=== PATIENT | female | born 1955 | race Caucasian/White ===

== ENCOUNTER 2023-06-20 10:22 | Outpatient (CLI) | payer OTHER, SELFPAY ==
--- NOTE | 2023-06-20 10:27 | MM_ITS ---
WS: [email or web address] SCREENING DIGITAL BREAST TOMOSYNTHESIS MAMMOGRAM WITH CAD HISTORY: Screening mammogram COMPARISON: 01/17/2012, 10/01/2015 and 05/21/2019 Bilateral CC and MLO with tomosynthesis and synthetic mammography submitted. Computer aided detection analyzed. Breast composition: The breasts are heterogeneously dense, which may obscure small masses. There is a n asymmetry in the posterior RIGHT breast seen below the nipple line measuring 10 mm. This is posteri or adjacent to the chest wall. Not definitely seen on the CC projection due to its posterior location . Possibly present on the study from 2011 but needs to be further evaluated. IMPRESSION: MM/[place] [id number] BI-RADS: 0-Incomplete: Need additional imaging evaluation FOLLOW UP: Need Additional Imaging RIGHT breast: Spot compression views (MLO). True ML. Ultrasound to follow if ab normality persists.
== END 2023-06-20 10:23 | disposition home or self-care (01) ==
PROVIDERS: PCP Family Medicine; Visit Provider Family Medicine
DX: Z12.31 Encounter for screening mammogram for malignant neoplasm of breast (principal)
CPT/HCPCS: 77063; 77067

== ENCOUNTER → 2023-07-11 08:31 | Outpatient (BNVA) | payer OTHER, SELFPAY | PROVIDERS: PCP Family Medicine; Visit Provider Family Medicine | DX: Z13.220 Encounter for screening for lipoid disorders (principal); Z51.81 Encounter for therapeutic drug level monitoring; E55.9 Vitamin D deficiency, unspecified | CPT/HCPCS: 80053; 80061; 82306; 85025 ==

== ENCOUNTER → 2023-07-18 13:14 | Outpatient (BNVA) | payer OTHER, SELFPAY | PROVIDERS: PCP Family Medicine; Visit Provider Family Medicine | DX: Z00.00 Encounter for general adult medical examination without abnormal findings (principal) | CPT/HCPCS: 87624 ==

== ENCOUNTER 2023-07-24 09:22 | Outpatient (CLI) | payer OTHER, MEDICARE, SELFPAY ==
--- NOTE | 2023-07-24 09:30 | MM_ITS ---
WS: [email or web address] ADDITIONAL VIEWS RIGHT MAMMOGRAM WITH DIGITAL BREAST TOMOSYNTHESIS. RIGHT BREAST ULTRASOUND HISTORY: Abnormal mammogram COMPARISON: 06/20/2023 and 05/21/2019 RIGHT MAMMOGRAM: Spot compression views and true ML with digital breast tomosynthesis and SM. Nodule is reidentified against the posterior RIGHT chest wall measuring 8.5 mm. This nodule does appe ar to be just below the nipple line and close to the midline. RIGHT BREAST ULTRASOUND 2-D and color Doppler imaging submitted. There is a hypoechoic mass. For posterior against the chest wall at 4:00, 1 cm from the nipple. This is isoechoic to the adjacent breast parenchyma and measures 8 x 9 x 3 mm. Size and location correspon d to the mammographic abnormality. This may be the same lesion seen on mammography. IMPRESSION: MM/[place] [id number] BI-RADS: 3-Probably Benign FOLLOW UP: 6 Month Follow-up Recommend diagnostic mammogram follow-up in 6 months and ultrasound of the RIG T breast. There is a benign-appearing breast mass against the chest wall. Very difficult to image due to its posterior location. Due to its appearance 6-month follow-up is recommended.
--- NOTE | 2023-07-24 10:54 | US_ITS ---
WS: [email or web address] ADDITIONAL VIEWS RIGHT MAMMOGRAM WITH DIGITAL BREAST TOMOSYNTHESIS. RIGHT BREAST ULTRASOUND HISTORY: Abnormal mammogram COMPARISON: 06/20/2023 and 05/21/2019 RIGHT MAMMOGRAM: Spot compression views and true ML with digital breast tomosynthesis and SM. Nodule is reidentified against the posterior RIGHT chest wall measuring 8.5 mm. This nodule does appe ar to be just below the nipple line and close to the midline. RIGHT BREAST ULTRASOUND 2-D and color Doppler imaging submitted. There is a hypoechoic mass. For posterior against the chest wall at 4:00, 1 cm from the nipple. This is isoechoic to the adjacent breast parenchyma and measures 8 x 9 x 3 mm. Size and location correspon d to the mammographic abnormality. This may be the same lesion seen on mammography. IMPRESSION: US/US breast RT limited* [id number] BI-RADS: 3-Probably Benign FOLLOW UP: 6 Month Follow-up Recommend diagnostic mammogram follow-up in 6 months and ultrasound of the RIGH T breast. There is a benign-appearing breast mass against the chest wall. Very difficult to image due to its posterior location. Due to its appearance 6-month follow-up is recommended.
== END 2023-07-24 09:23 | disposition home or self-care (01) ==
LOC: RAD 09:24
PROVIDERS: PCP Family Medicine; Visit Provider Family Medicine
DX: R92.8 Other abnormal and inconclusive findings on diagnostic imaging of breast (principal); Z12.31 Encounter for screening mammogram for malignant neoplasm of breast
CPT/HCPCS: 76642; 77061; G0279

== ENCOUNTER 2023-07-25 15:15 | Outpatient (CLI) | payer MEDICARE, OTHER, SELFPAY ==
--- NOTE | 2023-07-25 15:30 | XR_ITS ---
WS: [email or web address] DEXA (DUAL ENERGY X-RAY ABSORPTIOMETRY) Bone mineral density was performed using a [employer] machine. HISTORY: Postmenopausal COMPARISON: None available. Lumbar spine BMD (L1-L4): 0.992 g/cm2 T score: -1.6 Z score: -0.1 Total hip BMD: Left: 0.886 g/cm2. T score: -1.0 Z score: 0.2 Right: 0.927 g/cm2. T score: -0.6 Z score: 0.5 10 year probability of a major osteoporotic fracture is 8.8%. IMPRESSION: OSTEOPENIA based upon the WHO classification for females.
== END 2023-07-25 15:16 | disposition home or self-care (01) ==
LOC: RAD 15:15
PROVIDERS: PCP Family Medicine; Visit Provider Family Medicine
DX: Z78.0 Asymptomatic menopausal state (principal); M85.80 Other specified disorders of bone density and structure, unspecified site
CPT/HCPCS: 77080

== ENCOUNTER 2023-08-15 11:47 | Outpatient (CLI) | payer OTHER, MEDICARE, SELFPAY ==
--- NOTE | 2023-08-15 12:00 | USCV_ITS ---
Grecia Powell Age: 67 Gender: F : 1955 Exam Date: 08/15/2023 12:18 Ordering Phys: Rashel Jolley MD (Andy) ([email or web address]) Technologist: CT [place]am [place] [facility] [place]: HISTORY: PROCEDURES: FINDINGS: The deep veins are found to be patent bilaterally with no evidence of thrombosis The greater saphenous vein the saphenofemoral junction , greater saphenous vein distal to the saphenofemoral junction and the proximal greater saphenous vein segments were found to be patent bilaterally but of likely small caliber. The mid, distal and below-knee segments of the greater saphenous veins were noted visualized on the right side. The mid and distal greater saphenous vein segments are found to be patent and a small caliber on the left side. The below-knee segment of the greater saphenous vein was not visualized on the left side. Small saphenous vein was found to be patent bilaterally. Significant reflux of greater than 500 ms were noted in the proximal and mid segment of the small saphenous vein on the left side. The reflux time was greater than 3 ms 3 seconds and these venous segments were at a depth of more than 1 cm on the left side and where found to have diameters of 0.37 and 0.43 cm respectively. CONCLUSIONS 1. No evidence of DVT in the above-mentioned identifiable veins. 2. Significant venous reflux of greater than 500 ms were noted at the proximal and mid segments of the small saphenous vein on the left side. The venous diameter , reflux time and venous diameters are as mentioned above. 3. The mid, distal and below-knee segments of the greater saphenous vein on the right side was not visualized so also the below-knee segment of the greater saphenous vein on the left side. Dr Claudia Paulino MD [facility] (Electronically Signed) Final Date: 20 August 2023 18:43 S
== END 2023-08-15 11:48 | disposition home or self-care (01) ==
LOC: RAD 11:48
PROVIDERS: PCP Family Medicine; Visit Provider Thoracic Surgery (Cardiothoracic Vascular Surgery)
DX: I83.90 Asymptomatic varicose veins of unspecified lower extremity (principal); I87.2 Venous insufficiency (chronic) (peripheral)
CPT/HCPCS: 93970

== ENCOUNTER 2024-01-29 09:55 | Outpatient (CLI) | payer OTHER, SELFPAY ==
--- NOTE | 2024-01-29 | US_ITS ---
NOTE: Report was unsigned for reason: Order was edited. Original Signature date and time was: 01/29/24 @ 1215 ADDITIONAL VIEWS RIGHT MAMMOGRAM WITH DIGITAL BREAST TOMOSYNTHESIS. RIGHT BREAST ULTRASOUND HISTORY: Follow up on right breast lesion COMPARISON: 07/24/2023, 06/20/2023 and 05/21/2019 RIGHT MAMMOGRAM: Spot compression views and true ML with digital breast tomosynthesis and SM. Partially obscured mass measuring 11 x 8 mm persists in the posterior RIGHT breast just below the nipple. This mass is along the medial breast. No new mass. No suspicious calcifications. RIGHT BREAST ULTRASOUND 2-D and color Doppler imaging submitted. Ultrasound is directed to the inferior medial RIGHT breast At 4:00 reidentified is a ovoid hypoechoic mass measuring 0.7 x 1.0 x 0.4 cm which corresponds to the mammographic abnormality. This is also similar to the prior examination with no increase in size. This is probably a lymph node. MM/[place] [id number] IMPRESSION: BI-RADS: 3-Probably Benign FOLLOW UP: 6 Month Follow-up Patient to return in 6 months for bilateral, diagnostic mammogram. At that time ultrasound should also be performed also of the mass in the RIGHT breast. Favor this is a benign lymph node. BRENDA
--- NOTE | 2024-01-29 10:00 | MM_ITS ---
WS: [email or web address] ADDITIONAL VIEWS RIGHT MAMMOGRAM WITH DIGITAL BREAST TOMOSYNTHESIS. RIGHT BREAST ULTRASOUND HISTORY: Follow up on right breast lesion COMPARISON: 07/24/2023, 06/20/2023 and 05/21/2019 RIGHT MAMMOGRAM: Spot compression views and true ML with digital breast tomosynthesis and SM. Partially obscured mass measuring 11 x 8 mm persists in the posterior RIGHT breast just below the nip ple. This mass is along the medial breast. No new mass. No suspicious calcifications. RIGHT BREAST ULTRASOUND 2-D and color Doppler imaging submitted. Ultrasound is directed to the inferior medial RIGHT breast At 4:00 reidentified is a ovoid hypoechoic mass measuring 0.7 x 1.0 x 0.4 cm which corresponds to the mammographic abnormality. This is also similar to the prior examination with no increase in size. Th is is probably a lymph node.
--- NOTE | 2024-01-29 10:07 | MM_ITS ---
WS: [email or web address] ADDITIONAL VIEWS RIGHT MAMMOGRAM WITH DIGITAL BREAST TOMOSYNTHESIS. RIGHT BREAST ULTRASOUND HISTORY: Follow up on right breast lesion COMPARISON: 07/24/2023, 06/20/2023 and 05/21/2019 RIGHT MAMMOGRAM: Spot compression views and true ML with digital breast tomosynthesis and SM. Partially obscured mass measuring 11 x 8 mm persists in the posterior RIGHT breast just below the nip ple. This mass is along the medial breast. No new mass. No suspicious calcifications. RIGHT BREAST ULTRASOUND 2-D and color Doppler imaging submitted. Ultrasound is directed to the inferior medial RIGHT breast At 4:00 reidentified is a ovoid hypoechoic mass measuring 0.7 x 1.0 x 0.4 cm which corresponds to the mammographic abnormality. This is also similar to the prior examination with no increase in size. Th is is probably a lymph node. MM/[place] [id number] IMPRESSION: BI-RADS: 3-Probably Benign FOLLOW UP: 6 Month Follow-up Patient to return in 6 months for bilateral, diagnostic mammogram. At that time ultrasound should also be performed also of the mass in the RIGHT breast. Aaron simental this is a benign lymph node.
== END 2024-01-29 09:56 | disposition home or self-care (01) ==
LOC: RAD 09:55
PROVIDERS: PCP Family Medicine; Visit Provider Family Medicine
DX: R92.8 Other abnormal and inconclusive findings on diagnostic imaging of breast (principal); N63.14 Unspecified lump in the right breast, lower inner quadrant
CPT/HCPCS: 76642; 77061; 77065; G0279

== ENCOUNTER 2024-09-01 08:54 | Outpatient (CLI) | payer OTHER, SELFPAY ==
--- NOTE | 2024-09-01 09:00 | MM_ITS ---
WS: [email or web address] DIAGNOSTIC BILATERAL DIGITAL BREAST TOMOSYNTHESIS MAMMOGRAPHY WITH CAD RIGHT breast ultrasound, limited HISTORY: N63.14 - Unspecified lump in the right breast, lower inne... COMPARISON: 01/29/2024, 07/24/2023, 05/21/2019 TECHNIQUE: Bilateral craniocaudad, mediolateral oblique, and mediolateral views are submitted with to mosynthesis and SM. Exaggerated lateral RIGHT cc. Computer aided detection utilized. Breast composition: There are scattered areas of fibroglandular density. Mass against the posterior RIGHT chest wall is not as apparent on today's exam. There is no distortio n of the soft tissues. No discrete well-formed mass. RIGHT breast ultrasound, limited. The previously described ovoid well-circumscribed hypoechoic mass in the RIGHT breast at 4:00 is waqas entified measuring 0.9 x 0.8 x 0.4 cm. This may be a small foci of normal breast tissue surrounded by fat. There is been no increase in size. This does appear benign. MM/MM diag BI tomosynthesis [id number] IMPRESSION: BI-RADS: 2 - Benign. FOLLOW UP: 1 Year Follow-up No persistent abnormalities are identified. The hypoechoic mass previously desc ribed by ultrasound of 01/29/2024 is reidentified and appears similar in size an d normal. This may be a foci of glandular tissue surrounded by fat or lymph nod e. No additional imaging necessary.
--- NOTE | 2024-09-01 09:08 | US_ITS ---
WS: [email or web address] DIAGNOSTIC BILATERAL DIGITAL BREAST TOMOSYNTHESIS MAMMOGRAPHY WITH CAD RIGHT breast ultrasound, limited HISTORY: N63.14 - Unspecified lump in the right breast, lower inne... COMPARISON: 01/29/2024, 07/24/2023, 05/21/2019 TECHNIQUE: Bilateral craniocaudad, mediolateral oblique, and mediolateral views are submitted with to mosynthesis and SM. Exaggerated lateral RIGHT cc. Computer aided detection utilized. Breast composition: There are scattered areas of fibroglandular density. Mass against the posterior RIGHT chest wall is not as apparent on today's exam. There is no distortio n of the soft tissues. No discrete well-formed mass. RIGHT breast ultrasound, limited. The previously described ovoid well-circumscribed hypoechoic mass in the RIGHT breast at 4:00 is waqas entified measuring 0.9 x 0.8 x 0.4 cm. This may be a small foci of normal breast tissue surrounded by fat. There is been no increase in size. This does appear benign. US/US breast RT limited* [id number] IMPRESSION: BI-RADS: 2 - Benign. FOLLOW UP: 1 Year Follow-up No persistent abnormalities are identified. The hypoechoic mass previously desc ribed by ultrasound of 01/29/2024 is reidentified and appears similar in size an d normal. This may be a foci of glandular tissue surrounded by fat or lymph nod e. No additional imaging necessary.
== END 2024-09-01 08:55 | disposition home or self-care (01) ==
PROVIDERS: PCP Family Medicine; Visit Provider Family Medicine
DX: N63.14 Unspecified lump in the right breast, lower inner quadrant (principal); R92.321 Mammographic fibroglandular density, right breast
CPT/HCPCS: 76642; 77062; G0279

== ENCOUNTER → 2025-07-01 08:16 | Outpatient (BNVA) | payer OTHER, SELFPAY | PROVIDERS: PCP Family Medicine; Visit Provider Family Medicine | DX: Z00.00 Encounter for general adult medical examination without abnormal findings (principal); Z13.6 Encounter for screening for cardiovascular disorders; Z51.81 Encounter for therapeutic drug level monitoring; E55.9 Vitamin D deficiency, unspecified | CPT/HCPCS: 80053; 80061; 82306; 85025 ==